=== PATIENT | male | born 1985 | race Caucasian/White ===

== ENCOUNTER 2024-05-14 13:12 | Emergency (ER) | payer OTHER, SELFPAY ==
[2024-05-14 13:13] VITALS: BMI 34.3
[2024-05-14 13:29] VITALS: BP 127/84; PULSE 61; RESP 16; TEMP 37; O2SAT 99
--- NOTE | 2024-05-14 13:44 | XR_ITS ---
Examination: CT cervical spine without contrast 2-D sagittal reconstructions 2-D coronal reconstructions 3-D reconstructions. Exam date and time:May 14, 2024 1355 hrs. Indications: Injury to the head and neck yesterday, neck pain headache dizziness post injury CTDI:vol (mGy) 9.27 DLP: (mGycm) 189 Technique: Multiple 2 mm axial sections of the cervical spine have been obtained. The coronal and sagittal reconstructions have been obtained. 3-D reconstructions have been obtained. Low dose protocols were performed. One or more of the following dose reduction techniques were used; automated exposure control, adjustment of the mA and/or KV according to patient size, use of iterative reconstruction technique. Findings: Axial sections demonstrate intact base of the skull. C1 exhibit satisfactory relationship to the odontoid. No acute cervical vertebral body fracture seen. Alignment posterior spinous processes satisfactory. Impression: No acute cervical fracture.
--- NOTE | 2024-05-14 13:44 | XR_ITS ---
Examination: CT brain head without contrast. 2-D sagittal coronal reconstructions Date and time of exam:May 14, 2024 1355 hrs. Indications: Injury to the head yesterday followed by head pain dizziness headache CTDI: vol (mGy):51.8 DLP: (mGycm):1055 Technique: Multiple CT axial sections of the brain have been obtained, 5 mm slice thickness. Contrast has not been administered. 2-D sagittal, coronal reconstructions have been obtained Low dose protocols were performed. One or more of the following dose reduction techniques were used; automated exposure control, adjustment of the mA and/or KV according to patient size, use of iterative reconstruction technique. Findings: No significant ventricular enlargement. Intra-axial or extra-axial hemorrhage density is not seen. No mass effect or midline shift Basal cisterns are not remarkable. Fourth ventricle is midline. Cranial vault intact. Impression: Negative for acute hemorrhage, mass effect or midline shift
--- NOTE | 2024-05-14 13:52 | EDNOTE_ITS ---
<Statement entered by Ambreen Waggoner MD - 05/16/24 07:12> As co-signing physician, I was present and available for consult prn. I concur with the plan and care as documented by the midlevel provider. ED Head Injury RME/HPI General Chief complaint: Head Injury Stated complaint: HIT IN HEAD YESTERDAY. NOW CONFUSED/NAUSEA Time Seen by Provider: 05/14/24 13:25 Source: patient and family Arrival date/time: 05/14/24 13:12 38-year-old male presents to the emergency department with complaints of a head injury that occurred yesterday. Patient reports he was bending down while working on a tractor and a tractor ledge dropped hitting him with the edge metal on the anterior aspect of his head. Patient reports he is had headache, mild nausea however did not pass out. Patient did not attempt any interventions or take any OTC medications prior to ED visit. Mode of arrival: ambulatory Related Data Previous Rx's ?Medication ?Instructions ?Recorded ondansetron 4 mg disintegrating 4 mg PO TID PRN nausea and 05/14/24 tablet vomiting 4 days #14 tabs Allergies Allergy/AdvReac Type Severity Reaction Status Date / Time No Known Allergies Allergy Verified 05/14/24 13:14 Review of Systems Review of Systems Systems Reviewed: All systems reviewed, normal except as documented Narrative Review of Systems: Gen: No fever, no chills, no weight loss EYES: No discharge, no visual changes, no pain HEENT: No ear pain, no congestion, no sore throat PULM: No shortness of breath, no cough, no congestion CV: No chest pain, no dyspnea on exertion, no palpitations GI: No nausea, no vomiting, no diarrhea, no pain, no constipation : No frequency, no urgency,? no dysuria Musc/skel: No joint pain, no back pain Skin: No rash? Psyc: No hallucinations, no depression Heme/Lymph: No easy bleeding or bruising tendencies Neuro: No weakness, + headache Past Medical History Social History SMOKING STATUS: Never smoker ED Exam Narrative Physical exam: General: Sittiing in Exam table in no acute distress, answering questions appropriately HENT: normocephalic, atraumatic, EOMI, PERRLA, moist mucous membranes, + mild noted abrasion anterior head Chest: chest wall is nontender Cardiac: regular rate and rhythm, normal S1 and S2, no murmurs, rubs, or gallops, capillary refill ?2 seconds Pulmonary: clear to auscultation bilaterally, no wheezing, crackles, or rhonchi Abdominal: active bowel sounds, soft, nontender, nondistended Neuro: A&OX3, CN II-XII intact, sensation grossly intact bilaterally in UE and LE. Skin: no rashes, no ecchymosis Ext: no lower extremity edema Course Quality Measures none Orders Category Date Time Status CT cervical spine wo con Stat Exams 05/14/24 13:[address] head/brain wo con Stat Exams 05/14/24 13:44 Completed Vital Signs Vital signs: Vital Signs Temperature 98.6 F 05/14/24 13:29 Pulse Rate 61 05/14/24 13:29 Respiratory Rate 16 05/14/24 13:29 Blood Pressure 127/84 05/14/24 13:29 Pulse Oximetry (%) 99 05/14/24 13:29 Oxygen Delivery Method Room Air 05/14/24 13:29 Head Injury MDM Narrative MDM Narrative:: 38-year-old presents to the emergency department with complaints of a head injury. No reports of altered mental status. Patient is GCS 15. Vital signs stable. Patient worried due to head injury with a tractor yesterday patient states he googled his symptoms and was making sure he does not have any fracture of his skull. Reassured patient most likely he does not have a fracture he does not have a hematoma. He does have a small abrasion anterior aspect. Patient had a CT of his head and neck which were reassuring and negative exams. Vies patient he might have a little pain and some mild nausea which can be signs of a concussion. Strictly advised to follow-up with PCP and schedule an appointment with neurology if indicated outpatient. Advised to return to the emergency department this any worsening symptoms change in condition. Patient data External records reviewed:: [facility] previous records Clinical information provided by:: patient Social determinants that could affect healthcare access:: none Patient has the following chronic illnesses:: no How is presenting disease/condition affected by chronic disease/condition?: no chronic disease Evaluation data The following diagnostics were reviewed and interpreted by me:: radiology exam(s) Lab and/or radiology exams considered but not ordered:: no Interpretation Summary: Examination: CT cervical spine without contrast 2-D sagittal reconstructions 2-D coronal reconstructions 3-D reconstructions. Exam date and time:May 14, 2024 1355 hrs. Indications: Injury to the head and neck yesterday, neck pain headache dizziness post injury CTDI:vol (mGy) 9.27 DLP: (mGycm) 189 Technique: Multiple 2 mm axial sections of the cervical spine have been obtained. The coronal and sagittal reconstructions have been obtained. 3-D reconstructions have been obtained. Low dose protocols were performed. One or more of the following dose reduction techniques were used; automated exposure control, adjustment of the mA and/or KV according to patient size, use of iterative reconstruction technique. Findings: Axial sections demonstrate intact base of the skull. C1 exhibit satisfactory relationship to the odontoid. No acute cervical vertebral body fracture seen. Alignment posterior spinous processes satisfactory. Impression: No acute cervical fracture. Examination: CT brain head without contrast. 2-D sagittal coronal reconstructions Date and time of exam:May 14, 2024 1355 hrs. Indications: Injury to the head yesterday followed by head pain dizziness headache CTDI: vol (mGy):51.8 DLP: (mGycm):1055 Technique: Multiple CT axial sections of the brain have been obtained, 5 mm slice thickness. Contrast has not been administered. 2-D sagittal, coronal reconstructions have been obtained Low dose protocols were performed. One or more of the following dose reduction techniques were used; automated exposure control, adjustment of the mA and/or KV according to patient size, use of iterative reconstruction technique. Findings: No significant ventricular enlargement. Intra-axial or extra-axial hemorrhage density is not seen. No mass effect or midline shift Basal cisterns are not remarkable. Fourth ventricle is midline. Cranial vault intact. Impression: Negative for acute hemorrhage, mass effect or midline shift Medications / Prescriptions Medications or Prescriptions considered but not ordered:: no Medication administrations:: no Consultations Consultation(s) initiated? (list below): No Diagnosis Differential diagnosis head injury: concussion without loss of consciousness, closed head injury, subdural hematoma and concussion with loss of consciousness Most likely diagnosis given after review of the tests above:: no Admission Indicated Admission indicated?: not indicated Admission Request Was there a request for admission?: No Disposition Plan Disposition Plan: Discharge Discharge Attestation Discharge Attestation: The patient and all family members were given an opportunity to ask questions and understood the discharge instructions. Discharge instructions specifically effects, indications for sooner follow up or return to the emergency department, and the expected course of current diagnosis. Patient condition: Stable Discharge Plan Plan Patient Disposition: HOME (Self Care) Patient condition on transfer: Stable Prescriptions/Referrals Prescriptions/Med Rec: New ondansetron 4 mg tablet,disintegrating 4 mg PO TID PRN (Reason: nausea and vomiting) 4 Days Qty: 14 0RF Problem List Clinical Impression: Closed head injury Patient/Caregiver Discharge Instructions Discharge Activity: activity as tolerated Education Materials: Coping with Concussion, ED Head Injury (Adult) Additional Instructions: Your CT of brain school and neck were negative. Please follow-up with your primary doctor in 2 days. You might have signs of possible concussion which include dizziness, occasional nausea. Will send some nausea medication to the pharmacy can take [id number] Tylenol ibuprofen for pain. Return to the emergency department this any worsening symptoms change in condition Print Language: Bengali Stand Alone Forms: [employer] Award Info., Patient Portal Info Letter MARCELINO/ESTRADA Supervising Physician MARCELINO/ESTRADA Supervising Physician: Dr. Doran
== END 2024-05-14 15:34 | disposition home or self-care (01) ==
PROVIDERS: Emergency Provider Emergency Medicine; PCP Family Medicine
DX: S09.90XA Unspecified injury of head, initial encounter (principal); W31.89XA Contact with other specified machinery, initial encounter
CPT/HCPCS: 70450; 72125; 99284

== ENCOUNTER 2024-07-12 16:47 | Emergency (ER) | payer OTHER, SELFPAY ==
[2024-07-12 16:47] VITALS: BMI 33.7
[2024-07-12 16:53] VITALS: BP 153/90; PULSE 110; RESP 20; O2SAT 99
--- NOTE | 2024-07-12 17:27 | EDNOTE_ITS ---
<Statement entered by Ambreen Waggoner MD - 07/13/24 08:13> As co-signing physician, I was present and available for consult prn. I concur with the plan and care as documented by the midlevel provider. ED General RME/HPI General Chief complaint: Epistaxis/Nasal Foreign Body Stated complaint: NOSEBLEED X1HR Time Seen by Provider: 07/12/24 17:08 Arrival date/time: 07/12/24 16:47 CC: Left bloody nose HPI ongoing profusely for the last hour. The patient states it started [place], denies blunt trauma. In the last several years he has had multiple bleed to his nose but is never followed up on this 1 does not stop with direct pressure. No other complaints at this time. Related Data Allergies Allergy/AdvReac Type Severity Reaction Status Date / Time No Known Allergies Allergy Verified 07/12/24 16:49 Review of Systems Review of Systems Narrative Review of Systems: GEN: No fever, no chills, no weight loss EYES: No discharge, no visual changes, no pain HEENT: No ear pain, no congestion, no sore throat PULM: No shortness of breath, no cough, no congestion CV: No chest pain, no dyspnea on exertion, no palpitations GI: No nausea, no vomiting, no diarrhea, no pain, no constipation : No frequency, no urgency, no dysuria MUSC/SKEL: No joint pain, no back pain SKIN: No rash PSYCH: No hallucinations, no depression HEME/LYMPH: No easy bleeding or bruising tendencies NEURO: No weakness, no headache Past Medical History Social History SMOKING STATUS: Never smoker ED Exam Narrative Physical exam: [General: In mild discomfort but not in any acute distress Head normocephalic HEENT: Nose, steady dripping from the left nares. Right nares is unremarkable. Eyes pupils are PERRLA EOMs are intact although the subsystems of HEENT are within acceptable limits Neck is supple nontender Chest equal chest rise nontender to palpation Respiratory: Clear to auscultation no wheezes crackles or rubs CV: Rate rhythm is regular no murmurs rubs or clicks Abdomen is distended secondary to body habitus soft nontender no masses positive bowel sounds all 4 quadrants Back: No CVA tenderness no spinous process tenderness from cervical spine thoracic and lumbar spine Skin: Intact no petechiae rash induration ulceration or crepitus Extremities: Moving all extremity against resistance cap refill less than 2 seconds neurosensory intact Neuro: Awake alert oriented x3 Glascow coma 15 no focal deficits] Course Quality Measures none Vital Signs Vital signs: Vital Signs Pulse Rate 110 H 07/12/24 16:53 Respiratory Rate 20 07/12/24 16:53 Blood Pressure 153/90 H 07/12/24 16:53 Pulse Oximetry (%) 99 07/12/24 16:53 Oxygen Delivery Method Room Air 07/12/24 16:53 Procedures -ED Procedure Comment 4.5 cm Rhino Rocket placed in the left nares without complication stopping bleeding immediately. Patient is resting comfortably and tolerated the procedure well. MDM Patient data External records reviewed:: [facility] previous records Clinical information provided by:: patient Social determinants that could affect healthcare access:: none Patient has the following chronic illnesses:: None How is presenting disease/condition affected by chronic disease/condition?: uneffected by Evaluation data The following diagnostics were reviewed and interpreted by me:: other (specify) Lab and/or radiology exams considered but not ordered:: None Interpretation Summary: Left epistaxis Medications Medications considered but not ordered:: None Medication administrations:: None Consultations Consultation(s) initiated? (list below): No Diagnosis Differential Diagnosis ED Complaint MDM: Anterior epistaxis taxis left epistaxis Most likely diagnosis given after review of the tests above:: Left epistaxis Admission Indicated Admission indicated?: not indicated Explain why admission is indicated or not indicated:: Stable for discharge Admission Request Was there a request for admission?: No Disposition Plan Disposition Plan: Discharge Discharge Attestation Discharge Attestation: The patient and all family members were given an opportunity to ask questions and understood the discharge instructions. Discharge instructions specifically effects, indications for sooner follow up or return to the emergency department, and the expected course of current diagnosis. Patient condition: Stable Medical Decision Making Differential Diagnosis Differential Diagnosis: Anterior epistaxis taxis left epistaxis Discharge Plan Plan Patient Disposition: HOME (Self Care) Patient condition on transfer: Stable Prescriptions/Referrals Referrals: Juan Francisco Cooney MD [Physician] - In 1 week No Primary/Family,Physician [Primary Care Provider] - In 1 week Problem List Clinical Impression: Epistaxis Patient/Caregiver Discharge Instructions Other Activity Instructions:: Return in 3 days to have the packing from your nose removed. Take the antibiotics as prescribed for the 3 days. If there is continued bleeding in spite of the packing return to the emergency room sooner. Education Materials: ED Epistaxis (Adult) Print Language: Swiss Stand Alone Forms: [employer] Award Info., Work/School Release, Patient Portal Info Letter PA/ESTRADA Supervising Physician PA/DIRECTOR OF SEARCH ENGINE OPTIMIZATION Supervising Physician: Nishant Gudino ENP
[2024-07-12 17:40] VITALS: BP 150/104; PULSE 87; RESP 18; TEMP 36.7; O2SAT 100
[2024-07-12 18:08] VITALS: BP 148/95; PULSE 86; RESP 16; O2SAT 99
== END 2024-07-12 18:09 | disposition home or self-care (01) ==
PROVIDERS: Emergency Provider Emergency Medicine
DX: R04.0 Epistaxis (principal)
CPT/HCPCS: 30901; 99283

== ENCOUNTER 2024-07-15 10:03 | Emergency (ER) | payer OTHER, SELFPAY ==
[2024-07-15 10:04] VITALS: BMI 33.7
[2024-07-15 10:38] VITALS: BP 127/88; PULSE 80; RESP 19; TEMP 36.4; O2SAT 99; BMI 33.7
--- NOTE | 2024-07-15 11:28 | EDNOTE_ITS ---
ED General RME/HPI General Chief complaint: General Adult/Misc Complain Stated complaint: REMOVE NOSE PLUG Time Seen by Provider: 07/15/24 10:40 Arrival date/time: 07/15/24 10:03 This is a 38-year-old male that was seen here on July 12, 2024 for a nosebleed to they left nare. Patient had a Rhino Rocket put in place. Patient was given a 3 doses of antibiotics and was told to come back to the emergency room to have it removed today. Patient states since the Rhino Rocket's been in place he has had frequent headaches and feels like he has a lot of sinus pressure. Patient is concerned that he might have a sinus infection. Patient denies any fever or chills. Related Data Previous Rx's ?Medication ?Instructions ?Recorded acetaminophen 500 mg tablet 1,000 mg (2 x 500 mg) PO Q ID PRN 07/15/24 pain #20 tabs amoxicillin 875 mg-potassium 1 tab PO BID #14 tabs 03/29 clavulanate 125 mg tablet ibuprofen 800 mg tablet 800 mg PO Q6H PRN pain #10 t abs 07/15/24 Allergies Allergy/AdvReac Type Severity Reaction Status Date / Time No Known Allergies Allergy Verified 07/15/24 10:05 Review of Systems Review of Systems Systems Reviewed: All systems reviewed, normal except as documented Past Medical History Social History SMOKING STATUS: Never smoker ED Exam General General appearance: Present alert and in no apparent distress Head Head exam: Present atraumatic Eye Eye exam: Present normal appearance, PERRL and EOMI ENT ENT exam: Present normal exam, normal oropharynx and mucous membranes moist Neck Neck exam: Present normal inspection, full ROM and trachea midline Chest Chest inspection: Present normal inspection and symmetric chest wall rise Respiratory Respiratory exam: Present normal lung sounds bilaterally Cardiovascular Cardiovascular exam: Present regular rate, normal rhythm and normal heart sounds Abdominal Exam Abdominal exam: Present soft Extremities Exam Extremities exam: Present normal inspection and full ROM Back Exam Back exam: Present normal inspection and full ROM Neurological Exam Neurological exam: Present alert, oriented X3 and CN II-XII intact Psychiatric Psychiatric exam: Present normal affect and normal mood Skin Skin exam: Present warm, dry, intact and normal color Course Orders Category Date Time Status Acetaminophen Tab [Tylenol ES Tab] Med 07/15/24 11:31 Discontinued 1,000 mg PO X1 ONE Amoxicillin/Pot Clav 875 [Augmentin 875] Med 07/15/24 11:31 Discontinued 1 tab PO X1 ONE Ibuprofen Tab [Motrin Tab] Med 07/15/24 11:31 Discontinued 800 mg PO X1 ONE Oxymetazoline [place] 0.05% [Afrin Nasal [place]] Med 07/15/24 11:32 Discontinued See Dose Instructions NASAL X1 ONE Vital Signs Vital signs: Vital Signs Temperature 97.5 F 07/15/24 10:38 Pulse Rate 80 07/15/24 10:38 Respiratory Rate 19 07/15/24 10:38 Blood Pressure 127/88 H 07/15/24 10:38 Pulse Oximetry (%) 99 07/15/24 10:38 Oxygen Delivery Method Room Air 07/15/24 10:38 [facility] Medications Medication administrations:: Medication Administration History Discontinued Medications Acetaminophen (Acetaminophen 500 Mg Tablet) 1,000 mg PO X1 ONE Stop: 07/15/24 11:32 Last Admin: 07/15/24 11:40 Dose: 1,000 mg Documented By: DOMO Amoxicillin/Clavulanate Potassium (Amoxicillin/Pot Clav 875 Tablet) 1 tab PO X1 ONE Stop: 07/15/24 11:32 Last Admin: 07/15/24 11:40 Dose: 1 tab Documented By: DOMO Ibuprofen (Ibuprofen Tab 400 Mg Tablet) 800 mg PO X1 ONE Stop: 07/15/24 11:32 Last Admin: 07/15/24 11:40 Dose: 800 mg Documented By: DOMO Oxymetazoline HCl (Oxymetazoline [place] 0.05% 15 Ml Btl) 0 spray NASAL X1 ONE Stop: 07/15/24 11:33 Last Admin: 07/15/24 11:42 Dose: 2 spray Documented By: DOMO Medical Decision Making MDM Narrative MDM Narrative: Rhino Rocket to left nare removed without complications. Balloon was deflated prior to removing Rhino Rocket. Patient tolerated procedure well. Will treat patient with Augmentin for 7 days. Will tell patient to go home with ibuprofen and Tylenol and take for pain. Patient is told to follow-up with primary provider 1 to 2 days. Come back to the emergency room if symptoms change or worsen. Discharge Plan Plan Patient Disposition: HOME (Self Care) Patient condition on transfer: Stable Prescriptions/Referrals Prescriptions/Med Rec: New amoxicillin-pot clavulanate 875-125 mg tablet 1 tab PO BID Qty: 14 0RF ibuprofen 800 mg tablet 800 mg PO Q6H PRN (Reason: pain) Qty: 10 0RF acetaminophen 500 mg tablet 1,000 mg PO QID PRN (Reason: pain) Qty: 20 0RF Referrals: Mikhail Siddiqi DO [Primary Care Provider] - In 1 week Problem List Clinical Impression: Epistaxis Patient/Caregiver Discharge Instructions Discharge Activity: activity as tolerated Education Materials: ED Epistaxis (Adult) Print Language: Canadian Stand Alone Forms: [employer] Award Info., Patient Portal Info Letter PA/CAVITY PUMP OPERATOR Supervising Physician PA/CAVITY PUMP OPERATOR Supervising Physician: [email or web address]
[2024-07-15] MEDS: IBUPROFEN TAB 400 MG TABLET 800 MG PO (11:40)
[2024-07-15] MEDS: ACETAMINOPHEN 500 MG TABLET 1000 MG PO (11:40)
[2024-07-15] MEDS: AMOXICILLIN/POT CLAV 875 TABLET 1 TAB PO (11:40)
[2024-07-15] MEDS: OXYMETAZOLINE NAS SPRY 0.05% 15 ML BTL NASAL (11:42)
== END 2024-07-15 11:47 | disposition home or self-care (01) ==
PROVIDERS: Emergency Provider Emergency Medicine; PCP Family Medicine
DX: R04.0 Epistaxis (principal)
CPT/HCPCS: 99282; A9270